=== PATIENT | male | born 1950 | race Caucasian/White ===

== ENCOUNTER 2021-09-21 10:35 | Emergency (ER) | payer OTHER ==
[~2021-09-21] VITALS: Ht 188 cm; Wt 104.3 kg
[2021-09-21] MEDS ORDERED: CASIRIVIMAB/IMDEVIMAB 10 ML in SODIUM CHLORIDE 0.9% 100 ML IV ONE (12:00)
[2021-09-21] MEDS ORDERED: SOTROVIMAB 500 MG in SODIUM CHLORIDE 0.9% 100 ML IV ONE (12:00)
[2021-09-21] MEDS ORDERED: SODIUM CHLORIDE 0.9% 100 ML ONE (12:05)
== END 2021-09-21 12:42 | disposition home or self-care (01) ==
LOC: ER 11:08
DX: U07.1 COVID-19 (principal); R05.9 Cough, unspecified; Z85.828 Personal history of other malignant neoplasm of skin
CPT/HCPCS: 99283; J7050